=== PATIENT | male | born 1955 | race Two or more races ===

== ENCOUNTER → 2016-06-28 | Outpatient (REF) | payer OTHER | LOC: M SMT 16:54 | PROVIDERS: ATTEND Nurse Practitioner Women's Health | DX: R97.20 Elevated prostate specific antigen [PSA] (principal) ==

== ENCOUNTER → 2016-07-27 | Outpatient (CLI) | payer OTHER ==
--- NOTE | 2016-07-27 11:27 | REP ---
TRANSRECTAL PROSTATE ULTRASOUND WITH ULTRASOUND GUIDANCE FOR PROSTATE BIOPSY: Real-time sonographic evaluation of the prostate performed utilizing transrectal probe. The size of the gland is 4.2 x 3.5 x 5.2 cm for a total volume of 39.7 mL. Hypoechoic nodule on the right measures 6 x 4 mm and on the left 9 x 5 mm. Echotexture is diffusely heterogeneous. Seminal vesicles appear symmetrical and unremarkable. Ultrasound guidance was provided for Dr. Fernando who performed ultrasound guided biopsy of the prostate. Signed by Lan Lorenzo MD 07/27/2016 01:40 P
== END | disposition home or self-care (01) ==
LOC: M SMT PRO 08:04 → EDUNIT# 08:30
PROVIDERS: ATTEND Urology
DX: R97.20 Elevated prostate specific antigen [PSA] (principal)
CPT/HCPCS: 55700; 76872; 76942; G0416

== ENCOUNTER → 2016-08-03 | Outpatient (REF) | payer OTHER | LOC: M SMT 12:23 | PROVIDERS: ATTEND Nurse Practitioner Women's Health | DX: R97.20 Elevated prostate specific antigen [PSA] (principal) ==

== ENCOUNTER 2023-05-24 19:50 | Observation (INO) | payer OTHER, SELFPAY ==
[~2023-05-24] VITALS: Ht 172.7 cm; Wt 81.3 kg
[2023-05-24 21:56] VITALS: BP 134/74; TEMP 97.6; O2SAT 95
[2023-05-24] MEDS ORDERED: ONDANSETRON 4MG ORAL DISINTEGRATING TAB PO PRN (23:05)
[2023-05-25] VITALS (9 sets, daily range): BP systolic 96–128; BP diastolic 54–68; TEMP 97–98; O2SAT 94–99
[2023-05-25] MEDS ORDERED: LOPI600T PO (00:36)
[2023-05-25] MEDS ORDERED: OMEP40CA5 PO (00:36)
[2023-05-25] MEDS ORDERED: HOME MED LIST COMPLETE! XX SCH (00:40)
[2023-05-25 01:04] LABS: HEMATOCRIT 43.3 % (42.0-52.0); HEMOGLOBIN 15.1 g/dl (13.5-17.5); MEAN CORPUSCULAR HEMOGLOBIN 30.5 pg (27.0-33.0); MEAN CORPUSCULAR VOLUME 87.5 fl (80.0-96.0); RED BLOOD COUNT 4.95 10^6/uL (4.30-6.10); WHITE BLOOD COUNT 7.9 10^3/uL (4.0-10.0)
[2023-05-25 01:05] LABS: BASO # 0.1 10^3/uL (0.0-0.2); BASO % 0.6 % (0.0-1.0); EOS # 0.2 10^3/uL (0.0-0.5); LYMPH # 1.8 10^3/uL (1.5-5.0); LYMPH % 22.3 % (24.0-44.0); MEAN CORPUSCULAR HGB CONC 34.9 g/dl (32.0-36.5); MONO # 0.6 10^3/uL (0.0-0.8); MONO % 7.9 % (2.0-8.0); NEUTROPHILS # 5.3 10^3/uL (1.5-8.5); NEUTROPHILS % 67.1 % (36.0-66.0); PLATELET COUNT, AUTOMATED 218 10^3/uL (150-450)
[2023-05-25 01:26] LABS: BLOOD UREA NITROGEN 12 MG/DL (9-23); CALCIUM LEVEL 9.2 MG/DL (8.3-10.6); CARBON DIOXIDE LEVEL 27 MMOL/L (20-31); CHLORIDE LEVEL 110 MMOL/L (98-107); CREATININE FOR GFR 0.91 MG/DL (0.70-1.30); GLOMERULAR FILTRATION RATE > 60.0 (>49); GLUCOSE, FASTING 125 MG/DL (74-106); MAGNESIUM LEVEL 2.3 MG/DL (1.8-2.4); POTASSIUM SERUM 3.6 MMOL/L (3.5-5.1); SODIUM LEVEL 143 MMOL/L (136-145)
[2023-05-25 01:33] LABS: HEMOGLOBIN A1c 5.2 % (4.0-6.0)
[2023-05-25 06:11] LABS: BLOOD UREA NITROGEN 12 MG/DL (9-23); CALCIUM LEVEL 9.5 MG/DL (8.3-10.6); CARBON DIOXIDE LEVEL 24 MMOL/L (20-31); CHLORIDE LEVEL 111 MMOL/L (98-107); CREATININE FOR GFR 0.93 MG/DL (0.70-1.30); GLOMERULAR FILTRATION RATE > 60.0 (>49); GLUCOSE, FASTING 105 MG/DL (74-106); POTASSIUM SERUM 3.9 MMOL/L (3.5-5.1); SODIUM LEVEL 143 MMOL/L (136-145)
[2023-05-25] MEDS: FOLIC ACID 1MG TAB PO SCH (09:16)
[2023-05-25] MEDS: APIXABAN 2.5 MG TAB (ELIQUIS) PO SCH (09:16)
[2023-05-25] MEDS: THIAMINE 100 MG TAB PO SCH (09:17)
[2023-05-25] MEDS: MULTIVITAMINS/MINERALS THERAP 1 TAB PO SCH (09:17)
[2023-05-25] MEDS: MIDODRINE 5 MG TAB PO SCH (09:17)
[2023-05-25] MEDS: NS 1,000 ML IV ONE (09:18)
[2023-05-25] MEDS: GASTROGRAFIN SOLUTION 30ML PO SCH (11:47)
[2023-05-25] MEDS: OMEPRAZOLE 20MG CAP PO SCH (16:10)
[2023-05-26 05:19] VITALS: BP 123/58; TEMP 97.7; O2SAT 96
[2023-05-26 06:00] VITALS: BP 123/58
[2023-05-26] MEDS ORDERED: LOPI600T PO (07:48)
[2023-05-26] MEDS ORDERED: ELIQ2.5T PO (07:48)
[2023-05-26] MEDS ORDERED: DIGO0.123 PO (07:48)
[2023-05-26] MEDS ORDERED: THIA100TA PO ×2 (07:48→07:49)
[2023-05-26] MEDS ORDERED: MIDO5TA PO (07:48)
[2023-05-26] MEDS ORDERED: FOLI1TAB11 PO (07:48)
[2023-05-26 07:52] VITALS: BP 135/65; TEMP 97.7; O2SAT 98
[2023-05-26 08:08] LABS: ERYTHROCYTE SEDIMENTATION RATE 18 mm/hr (0-20)
[2023-05-26] MEDS: DIGOXIN INJ 0.5 MG/2 ML AMP IV ONE (08:17)
[2023-05-26 08:18] LABS: HEMATOCRIT 42.2 % (42.0-52.0); HEMOGLOBIN 14.7 g/dl (13.5-17.5); MEAN CORPUSCULAR HEMOGLOBIN 30.8 pg (27.0-33.0); MEAN CORPUSCULAR VOLUME 88.5 fl (80.0-96.0); RED BLOOD COUNT 4.77 10^6/uL (4.30-6.10); WHITE BLOOD COUNT 7.4 10^3/uL (4.0-10.0)
[2023-05-26 08:19] LABS: BASO # 0.1 10^3/uL (0.0-0.2); BASO % 0.7 % (0.0-1.0); EOS # 0.2 10^3/uL (0.0-0.5); LYMPH # 1.9 10^3/uL (1.5-5.0); LYMPH % 25.3 % (24.0-44.0); MEAN CORPUSCULAR HGB CONC 34.8 g/dl (32.0-36.5); MONO # 0.6 10^3/uL (0.0-0.8); MONO % 8.7 % (2.0-8.0); NEUTROPHILS # 4.6 10^3/uL (1.5-8.5); PLATELET COUNT, AUTOMATED 215 10^3/uL (150-450)
[2023-05-26 08:23] LABS: C REACTIVE PROTEIN QUANTITATIV < 0.40 MG/DL (<1.0)
[2023-05-26 08:24] LABS: ALBUMIN 3.2 G/DL (3.2-5.2); ALKALINE PHOSPHATASE 56 U/L (46-116); ALT/SGPT 24 U/L (7.0-40); AST/SGOT 16 U/L (<34); BILIRUBIN,TOTAL 0.5 MG/DL (0.3-1.2); BLOOD UREA NITROGEN 16 MG/DL (9-23); CALCIUM LEVEL 8.8 MG/DL (8.3-10.6); CARBON DIOXIDE LEVEL 24 MMOL/L (20-31); CHLORIDE LEVEL 110 MMOL/L (98-107); CREATININE FOR GFR 1.04 MG/DL (0.70-1.30); GLOMERULAR FILTRATION RATE > 60.0 (>49); GLUCOSE, FASTING 100 MG/DL (74-106); POTASSIUM SERUM 3.9 MMOL/L (3.5-5.1); SODIUM LEVEL 141 MMOL/L (136-145)
[2023-05-26 08:31] LABS: PROCALCITONIN <0.04 ng/ml
[2023-05-26] MEDS ORDERED: MULT-90 PO (10:49)
[2023-05-26] MEDS ORDERED: OMEP-173 PO (10:49)
[2023-05-26 12:09] VITALS: BP 122/69
[2023-05-26] MEDS ORDERED: LOPE2CAP PO (13:26)
[2023-05-26] MEDS ORDERED: LOPE1CAP5 PO (13:27)
== END 2023-05-26 13:18 | disposition home or self-care (01) ==
LOC: M PCU 21:56
PROVIDERS: ADMIT Internal Medicine; ATTEND Internal Medicine
DX: I48.91 Unspecified atrial fibrillation (principal); I95.89 Other hypotension; K52.9 Noninfective gastroenteritis and colitis, unspecified; K50.90 Crohn's disease, unspecified, without complications; R07.89 Other chest pain; R06.02 Shortness of breath; F10.20 Alcohol dependence, uncomplicated; K57.90 Diverticulosis of intestine, part unspecified, without perforation or abscess without bleeding; I83.891 Varicose veins of right lower extremity with other complications; K40.90 Unilateral inguinal hernia, without obstruction or gangrene, not specified as recurrent; E78.00 Pure hypercholesterolemia, unspecified; R01.1 Cardiac murmur, unspecified; Z79.899 Other long term (current) drug therapy; Z79.01 Long term (current) use of anticoagulants; Z90.49 Acquired absence of other specified parts of digestive tract; Z87.891 Personal history of nicotine dependence; Z82.41 Family history of sudden cardiac death
CPT/HCPCS: 74176; 80048; 80053; 83036; 83605; 83735; 84145; 85025; 85652; 86140; 87507; 93306; 97161; Q9963